=== PATIENT | female | born 1995 | race Caucasian/White ===

== ENCOUNTER 2017-11-05 16:01 | Emergency (ER) | payer SELFPAY, OTHER, MEDICAID ==
[2017-11-05] MEDS: ACETAMINOPHEN 325 MG TAB PO (16:41)
== END 2017-11-05 17:24 | disposition home or self-care (01) ==
LOC: FTE 16:01
DX: J06.9 Acute upper respiratory infection, unspecified (principal)
CPT/HCPCS: 71045; 99283-25